=== PATIENT | female | born 1980 | race Caucasian/White ===

== ENCOUNTER 2019-01-05 20:19 | Emergency (ER) | payer OTHER, SELFPAY ==
[2019-01-05 20:28] VITALS: BP 116/83; PULSE 64; RESP 18; TEMP 36.9; O2SAT 100; BMI 26.6
--- NOTE | 2019-01-05 20:40 | PC.NURSE ---
Pt states painful reddened area on L wrist, area is erythemic and slightly swollen pea sized raised area. Pt used abx ointment at home but no relief. Denies fever or chills.
--- NOTE | 2019-01-05 21:47 | ED_ITS ---
HPI - Wound/Laceration General Chief Complaint: Wound/Laceration Stated Complaint: WOUND ON LT WRIST HURTING Time Seen by Provider: 01/05/19 21:03 Source: patient Mode of arrival: ambulatory Limitations: no limitations History of Present Illness HPI narrative: Patient comes emergency department with a painful lesion on her left wrist, which she thinks may be a spider bite. She states there is redness around the area, and she wants to make sure that this is okay. She states she has a more chronic pain in that same area, the etiology of which she is not sure. No fevers. No chills. No streaking. No lesions anywhere else. No other complaints at this time. Patient is otherwise healthy. Related Data Previous Rx's Medication Instructions Recorded sulfamethoxazole-trimethoprim 1 tab PO BID #14 tab 01/05/19 [Bactrim DS] Allergies Allergy/AdvReac Type Severity Reaction Status Date / Time No Known Drug Allergies Allergy Verified 01/05/19 20:30 Review of Systems Constitutional Denies chills, Denies fever(s), Denies lethargy and Denies weakness Eyes Denies change in vision, Denies eye discharge, Denies irritation and Denies loss of vision ENT Ears, Nose, Mouth, and Throat: Denies change in voice, Denies neck pain and Denies sore throat Cardiovascular Denies chest pain, Denies irregular heart rhythm, Denies lightheadedness, Denies palpitations, Denies dyspnea, Denies dyspnea on exertion and Denies orthopnea Respiratory Denies cough, Denies dyspnea, Denies dyspnea on exertion and Denies wheezing Gastrointestinal Gastrointestinal: Denies abdominal pain, Denies change in bowel habits, Denies diarrhea, Denies nausea and Denies vomiting Genitourinary Denies hematuria, Denies flank pain, Denies urinary incontinence and Denies urinary urgency Musculoskeletal Denies neck pain Integumentary/Breasts Denies pruritus, Denies erythema, Denies rash and Denies wounds Comments: Skin lesion Neurologic Denies confusion, Denies loss of vision and Denies weakness Psychiatric Denies anxiety, Denies confusion, Denies depression, Denies homicidal ideation and Denies suicidal ideation Endocrine Denies palpitations Hematologic/Lymphatic Denies easy bruising Allergic/Immunologic Denies wheezing [facility] Medical History Patient denies medical problems (Acute) Social History Smoking Status: Never smoker Social History Smoking Status: Never smoker Exam Initial Vital Signs Initial Vital Signs: Vital Signs Temperature 98.4 F 01/05/19 20:28 Pulse Rate 64 01/05/19 20:28 Respiratory Rate 18 01/05/19 20:28 Blood Pressure 116/83 01/05/19 20:28 Pulse Oximetry 100 01/05/19 20:28 Const General: cooperative and well developed Nutritional Appearance: well nourished Orientation: alert, awake, oriented x3 and not confused HENMT Head: normocephalic and atraumatic Ears: external ears normal and TM's normal bilaterally Nose: external nose normal and No nasal discharge Face and sinus: sinuses nontender, face symmetric, no sinus tenderness and No dry mucous membranes Mouth: oral mucosae normal and moist mucous membranes Teeth and gingiva: dentition normal Throat: tonsils normal and uvula midline Eyes General: appearance normal, both eyes and all related structures Eyelids: eyelids normal Conjunctivae: conjunctivae normal Sclera: sclerae normal Pupils: PERRL EOM: EOM intact bilaterally Neck Neck: normal visual inspection, trachea midline, No lymphadenopathy, No midline deformity and No JVD Lymphatic: No lymphedema Chest Chest: normal inspection of the chest Resp Effort & Inspection: normal respiratory effort, able to speak in complete sentences, no respiratory distress and no use of accessory muscles Cardio Rate: regular rate Rhythm: regular rhythm Pulses: normal peripheral pulses Back/Spine/Pelvis Back: No CVA tenderness Cervical Spine: cervical ROM normal and No pain with cervical ROM Thoracic/Lumbar Spine: thoracic and lumbar spine normal to inspection Skin General: No jaundice and No petechiae Other: The patient has an 8 mm erythematous lesion on the radial aspect of her left wrist. This is mildly raised. There is slight pinkish discoloration of the skin for a 2 cm radius around the lesion. There is no fluctuance or drainage. Minimal induration is confined to the lesion itself. No drainage. A dry, punctate scab is noted at the apex of the lesion. Patient has full range of motion of the wrist. Her radial pulse is intact. Neuro General: alert, oriented x3, gait normal and no focal motor deficits Speech: speech normal Extrem General: full ROM Other: Full range motion left wrist. Psych Appearance: well kempt Mental Status: mental status grossly normal Attitude: cooperative Thought Content: normal and suicidality Judgment: judgment good Course Course Narrative: I discussed with the patient that at this point in time, her lesion is extremely small and minor in appearance, and appears to most likely be an insect bite. The slight pinkish discoloration of the skin is barely visible, and most likely represents localized inflammatory response, secondary to the bite itself. However, there is a small possibility that this is an early infection, where that the lesion could become infected, and as such, I have given the patient a prescription for Bactrim. I have instructed her that at this point, it would be very reasonable to wait to fill prescription unless she sees worsening of the redness or swelling, or unless she develops fevers or chills. The patient was agreeable to this plan. We have discussed the usual i ndications for return. Vital Signs - 8 hr 01/05/19 20:28 Temperature 98.4 F Pulse Rate 64 Respiratory Rate 18 Blood Pressure 116/83 Pulse Oximetry 100 MDM - Wound/Laceration Medical Records Attestation: I reviewed the patient's medical records. Discharge Plan Departure Patient Disposition: Home Clinical Impression: Insect bite Qualifiers: Encounter type: initial encounter Site of insect bite: wrist Laterality: left Qualified Code(s): S60.862A - Insect bite (nonvenomous) of left wrist, initial encounter Discharge Date/Time: 01/05/19 21:55 Interventions: ED Discharge Assessment Last Done: 01/05/19 21:55 Instructions: DI for Insect Bites and Stings Activity Restrictions/Additional Instructions: The mild redness and discomfort are most likely a reaction to the bite. As you body's reaction settles down, the symptoms will resolve. You have been given a prescription for an antibiotic, which you may fill if you develop intensifying or spreading redness. Additionally, if you develop fevers and chills, and have not noted resolution of your redness, you should also fill the antibiotic. Otherwise, if the symptoms do not seem to be worsening, then you likely do not need an antibiotic. Prescriptions: New sulfamethoxazole-trimethoprim [Bactrim DS] 800-160 mg tablet 1 tab PO BID Qty: 14 RF: 0
== END 2019-01-05 21:55 | disposition home or self-care (01) ==
PROVIDERS: Emergency Provider Emergency Medicine
DX: S60.862A Insect bite (nonvenomous) of left wrist, initial encounter (principal); W57.XXXA Bitten or stung by nonvenomous insect and other nonvenomous arthropods, initial encounter
CPT/HCPCS: 99283

== ENCOUNTER 2019-01-08 20:20 | Emergency (ER) | payer OTHER, SELFPAY ==
--- NOTE | 2019-01-08 20:23 | ED.SKABFB ---
HPI - Skin/Abscess/Foreign Bdy General Chief complaint: Skin/Abscess/Foreign Body Stated complaint: insect bite left hand, getting worse Time Seen by Provider: 01/08/19 20:21 Source: patient Mode of arrival: ambulatory Limitations: no limitations History of Present Illness HPI narrative: Patient is a 39-year-old female who was seen here in the emergency department a couple days ago for what she thought was a spider bite on her left wrist. She was given a prescription for Bactrim. She is currently taking that medicine. She states that since that time the infection has gotten worse. Has become more painful and more swollen. No fevers. No wrist pain. Related Data Previous Rx's Medication Instructions Recorded sulfamethoxazole-trimethoprim 1 tab PO BID #14 tab 01/05/19 [Bactrim DS] Allergies Allergy/AdvReac Type Severity Reaction Status Date / Time No Known Drug Allergies Allergy Verified 01/05/19 20:30 Review of Systems Constitutional Denies fever(s) Cardiovascular Denies dyspnea Respiratory Denies dyspnea Musculoskeletal Comments: No pain to movement left wrist Integumentary/Breasts Comments: Redness and swelling around the insect bite to the left wrist Neurologic Comments: No tingling to the left hand PFS Medical History Patient denies medical problems (Acute) Social History Smoking Status: Never smoker Social History Smoking Status: Never smoker Exam Initial Vital Signs Initial Vital Signs: Vital Signs Temperature 99 F 01/08/19 20:24 Pulse Rate 94 H 01/08/19 20:24 Respiratory Rate 18 01/08/19 20:24 Blood Pressure 146/96 H 01/08/19 20:24 Pulse Oximetry 98 01/08/19 20:24 Const General: cooperative, comfortable, well developed, well groomed and No acute distress Orientation: alert and awake Resp Effort & Inspection: normal respiratory effort Cardio Rate: regular rate Skin Other: Patient with a 2 cm abscess on the volar aspect of the left wrist on the radial side just proximal to the wrist. No surrounding erythema. Does have a ferreira. Neuro Other: Sensation intact to light touch left wrist Extrem Other: Full range of motion left wrist left elbow Psych Mood: anxious mood Procedures Abscess I/D Site: upper extremity Side (if applicable): left Local Anesthetic: lidocaine 1% Amount of anesthesia used (mL): 2 Technique: incised with #11 blade Irrigation: No Packing used?: none Course Vital Signs - 8 hr 01/08/19 20:24 Temperature 99 F Pulse Rate 94 H Respiratory Rate 18 Blood Pressure 146/96 H Pulse Oximetry 98 MDM - Skin/Abscess/Foreign Bdy MDM Narrative Medical decision making narrative: Ninety was performed expression of a very small amount of purulent material. There is no surrounding erythema. She is currently on Bactrim will have her continue taking this medication. There is no streaking up her arm. I do not feel that she needs admitted to the hospital for IV antibiotics. There is no signs of a septic joint. She was given return precautions and care instructions and follow-up instructions. She expressed understanding and agreement with plan. Discharge Plan Departure Patient Disposition: Home Clinical Impression: Abscess of skin Qualifiers: Site of cutaneous abscess: extremity Site of cutaneous abscess of extremity: upper extremity Laterality: left Qualified Code(s): L02.414 - Cutaneous abscess of left upper limb Discharge Date/Time: 01/08/19 20:41 Interventions: ED Discharge Assessment Last Done: 01/08/19 20:41 Instructions: DI for Skin Abscess, DI for Incision and Drainage Activity Restrictions/Additional Instructions: Continue with the antibiotics that you were given during her last visit here. Use the bandages you were given just to keep the area covered and to keep your clothes clean. You can shower like normal in use soap and water like normal. Keep her follow-up appointment with her primary doctor later this week. Return to the emergency department for any new or worsening symptoms Prescriptions: No Action sulfamethoxazole-trimethoprim [Bactrim DS] 800-160 mg tablet 1 tab PO BID Qty: 14 RF: 0
[2019-01-08 20:24] VITALS: BP 146/96; PULSE 94; RESP 18; TEMP 37.2; O2SAT 98
--- NOTE | 2019-01-08 20:31 | PC.NURSE ---
Pt with abscess to left wrist. Started oral antibiotics (bactrim) yesterday. Improved redness to abscess noted. Dr. Ledesma at bedside for I&D. Pt with CMS intact in LUE.
== END 2019-01-08 20:41 | disposition home or self-care (01) ==
PROVIDERS: Emergency Provider Emergency Medicine
DX: S60.862D Insect bite (nonvenomous) of left wrist, subsequent encounter (principal); W57.XXXD Bitten or stung by nonvenomous insect and other nonvenomous arthropods, subsequent encounter; L02.414 Cutaneous abscess of left upper limb
CPT/HCPCS: 10060; 99282; 99283

== ENCOUNTER 2019-01-09 22:31 | Emergency (ER) | payer OTHER, SELFPAY ==
[2019-01-09 22:39] VITALS: BP 114/71; PULSE 78; RESP 18; TEMP 36.7; O2SAT 98
--- NOTE | 2019-01-09 22:42 | ED.SKABFB ---
HPI - Skin/Abscess/Foreign Bdy General Chief complaint: Skin/Abscess/Foreign Body Stated complaint: left wrist pain Time Seen by Provider: 01/09/19 22:33 Source: patient Mode of arrival: ambulatory Limitations: no limitations History of Present Illness HPI narrative: Patient is a 39-year-old female who I evaluated the emergency department yesterday for an abscess to her left forearm just proximal to the thumb. I performed an incision and drainage. She was already on antibiotics at that time. She returns today because she thinks that the infection is getting worse. She also states she was having increasing pain. She did state that the ?prescription strength ?Aleve that her had did help his symptoms quite a bit. She thought that after 3 days of antibiotics think should be improving. She came in for further evaluation. Related Data Previous Rx's Medication Instructions Recorded sulfamethoxazole-trimethoprim 1 tab PO BID #14 tab 01/05/19 [Bactrim DS] Allergies Allergy/AdvReac Type Severity Reaction Status Date / Time No Known Drug Allergies Allergy Verified 01/05/19 20:30 Review of Systems Constitutional Denies headache(s) ENT Ears, Nose, Mouth, and Throat: Denies headache(s) Cardiovascular Denies chest pain and Denies dyspnea Respiratory Denies dyspnea Gastrointestinal Gastrointestinal: Denies abdominal pain Musculoskeletal Denies myalgias and Denies arthralgias Integumentary/Breasts Comments: Abscess to left wrist Neurologic Denies headache(s) Hematologic/Lymphatic Denies easy bleeding and Denies easy bruising [facility], [facility] Medical History Patient denies medical problems (Acute) Social History Smoking Status: Never smoker Social History Smoking Status: Never smoker Exam Initial Vital Signs Initial Vital Signs: Vital Signs Temperature 98.0 F 01/09/19 22:39 Pulse Rate 78 01/09/19 22:39 Respiratory Rate 18 01/09/19 22:39 Blood Pressure 114/71 01/09/19 22:39 Pulse Oximetry 98 01/09/19 22:39 Const General: cooperative, well developed, well groomed and No acute distress Orientation: alert and awake [facility] Head: normal to inspection and normocephalic Cardio Pulses: radial pulses present on the left Skin Other: The abscess in left wrist appears very similar ordered does yesterday. Certainly no worse. The incision site is still open and draining a small amount of purulent material. Neuro Sensory Exam: no sensory deficits noted Extrem Other: Full range of motion left wrist without any problems Course Vital Signs - 8 hr 01/09/19 22:39 Temperature 98.0 F Pulse Rate 78 Respiratory Rate 18 Blood Pressure 114/71 Pulse Oximetry 98 MDM - Skin/Abscess/Foreign Bdy MDM Narrative Medical decision making narrative: The wound looks would I would expected to look like at this stage in the healing. I did numb the area once more and cleaned out the wound once again. There were no loculations. I did provide reassurance to the patient that things seem to be going in the proper direction. Encouraged her to continue the antibiotics. We discussed the use of anti-inflammatories because this seemed to help her symptoms. She was again given return precautions and follow-up instructions. She expressed understanding and agreement with plan. Discharge Plan Departure Patient Disposition: Home Clinical Impression: Abscess of skin Qualifiers: Site of cutaneous abscess: extremity Site of cutaneous abscess of extremity: upper extremity Laterality: left Qualified Code(s): L02.414 - Cutaneous abscess of left upper limb Discharge Date/Time: 01/09/19 23:05 Interventions: ED Discharge Assessment Last Done: 01/09/19 23:04 Activity Restrictions/Additional Instructions: The infection looks what I would expected to look like at this stage in healing. Continue to take the antibiotics as directed. Return to the emergency department for any new or worsening symptoms Prescriptions: No Action sulfamethoxazole-trimethoprim [Bactrim DS] 800-160 mg tablet 1 tab PO BID Qty: 14 RF: 0
== END 2019-01-09 23:05 | disposition home or self-care (01) ==
PROVIDERS: Emergency Provider Emergency Medicine
DX: L02.414 Cutaneous abscess of left upper limb (principal)
CPT/HCPCS: 99282